=== PATIENT | male | born 1985 | race Caucasian/White ===

== ENCOUNTER 2017-10-06 19:43 | Observation (INO) | payer BC, SELFPAY ==
[2017-10-06] MEDS ORDERED: Lactated Ringer's 1,000 ML IV SCH (20:15)
--- NOTE | 2017-10-06 20:35 | ED PDOC ---
Arrival/HPI - General Chief Complaint: Abdominal Pain Time Seen by Provider: 10/06/17 20:13 Historian: Patient - History of Present Illness Narrative History of Present Illness (Text): 10/06/17 20:32 A 31 year old male, with no significant past medical history, presents to the emergency department complaining of vomiting and diarrhea that began yesterday and abdominal pain that began today. +cough no fever. Time/Duration: Other (Yesterday) Symptom Onset: Sudden Symptom Course: Unchanged Activities at Onset: Rest, Light Context: Home Past Medical History - Provider Review Nursing Documentation Reviewed: Yes - Infectious Disease Hx of Infectious Diseases: None - Psychiatric Hx Substance Use: No Family/Social History - Physician Review Nursing Documentation Reviewed: Yes Family/Social History: No Known Family HX (Non- contributory) Smoking Status: Never Smoked Hx Alcohol Use: No Hx Substance Use: No Allergies/Home Meds Allergies/Adverse Reactions: Allergies pistachio nut Allergy (Verified 10/07/17 03:07) VOMITING Review of Systems - Physician Review All systems were reviewed & negative as marked: Yes - Review of Systems Constitutional: absent: Fevers, Night Sweats Respiratory: Cough. absent: SOB Cardiovascular: absent: Chest Pain Gastrointestinal: Abdominal Pain, Diarrhea, Vomiting Neurological: absent: Headache Physical Exam Vital Signs Reviewed: Yes Vital Signs Temp Pulse Resp BP Pulse Ox 10/06/17 23:49 99.2 F 92 H 18 123/78 99 10/06/17 23:00 88 18 124/76 100 10/06/17 21:43 90 18 135/85 99 10/06/17 19:43 101.2 F H 95 H 18 142/69 99 Appearance: Positive for: Well-Appearing, Non-Toxic, Comfortable Pain Distress: None Mental Status: Positive for: Alert and Oriented X 3 - Systems Exam Head: Present: Atraumatic, Normocephalic Pupils: Present: PERRL Extroacular Muscles: Present: EOMI Conjunctiva: Present: Normal Mouth: Present: Moist Mucous Membranes Neck: Present: Normal Range of Motion Respiratory/Chest: Present: Clear to Auscultation, Good Air Exchange. No: Respiratory Distress, Accessory Muscle Use Cardiovascular: Present: Regular Rate and Rhythm, Normal S1, S2. No: Murmurs Abdomen: Present: Tenderness (Periumbilical tenderness. ) Back: Present: Normal Inspection Upper Extremity: Present: Normal Inspection. No: Cyanosis, Edema Lower Extremity: Present: Normal Inspection. No: Edema Neurological: Present: GCS=15, CN II-XII Intact, Speech Normal Skin: Present: Warm, Dry, Normal Color. No: Rashes Psychiatric: Present: Alert, Oriented x 3, Normal Insight, Normal Concentration Medical Decision Making ED Course and Treatment: 10/06/17 20:38 Impression: A 31 year old male presents to the emergency department with complaints of periumbilical pain that began today, vomiting and diarrhea that began yesterday. Plan: -- Abdomen/Pelvis CT -- Chest X-ray -- Labs -- Urinalysis -- Toradol and Lactated Ringer's -- Reassess and disposition Progress Notes: CT Abdomen and Pelvis With Intravenous Contrast FINDINGS: LOWER THORAX: No infiltrate seen in the lung bases. ABDOMEN: LIVER: Fatty infiltration of the liver. GALLBLADDER AND BILE DUCTS: No CT evidence of acute cholecystitis. No evidence of significant biliary ductal dilatation. PANCREAS: No CT evidence of acute pancreatitis. SPLEEN: No acute abnormality of the spleen identified. ADRENALS: No acute abnormality of the adrenal glands identified. KIDNEYS AND URETERS: No acute abnormality of the kidneys identified. No evidence of significant hydrouereteronephrosis. STOMACH AND BOWEL: Findings suspicious for a small bowel obstruction. There are multiple fluid-filled and mildly dilated small bowel loops seen, mostly mid small bowel loops, and there are multiple decompressed distal small bowel loops visualized. Transition point is probably seen, within a small bowel loop in the abdomen centrally, images 37-59 of series 601, where there is a change in caliber of the small bowel, followed by multiple normal caliber to mildly decompressed distal small bowel loops. No definite mass is identified at the transition point. There is no evidence of focal enteritis of the transition point. An adhesive small bowel obstruction could have this appearance. Scattered colonic diverticulosis, without evidence of diverticulitis. Otherwise , no significant abnormality of the bowel is identified. APPENDIX: Appendix is seen, and is within normal limits in appearance. PELVIS: BLADDER: No acute abnormality of the bladder identified. REPRODUCTIVE: No acute abnormality of the reproductive organs is seen. ABDOMEN and PELVIS: INTRAPERITONEAL SPACE: No evidence of free intraperitoneal air or fluid. BONES/JOINTS: No acute fractures or other acute bony abnormality noted. SOFT TISSUES: No acute abnormality of the visualized soft tissues is seen. VASCULATURE: No evidence of abdominal aortic aneurysm. No evidence of periaortic hemorrhage. LYMPH NODES: Multiple small lymph nodes seen in the small bowel mesentery, none appearing pathologically enlarged. This is a nonspecific finding. No evidence of diffuse pathologic lymphadenopathy. IMPRESSION: - Findings highly suspicious for a small bowel obstruction. Please see above for a full description. - See above for remaining findings. Dictated and Authenticated by: Orly Naik MD 10/06/2017 10:41 PM Eastern Time ([place] & [place]) - Lab Interpretations Microbiology Results: Microbiology Results 10/06/17 22:00 Urine Urine Culture - Final No Growth (<1,000 CFU/ML) Lab Results: 10/06/17 20:25 10/06/17 20:25 Lab Results 10/06/17 21:40: Urine Color Yellow, Urine Appearance Clear, Urine pH 6.0, Ur Specific [place] 1.025, Urine Protein 30 H, Urine Glucose (UA) Negative, Urine Ketones Negative, Urine Blood Trace-intact H, Urine Nitrate Negative, Urine Bilirubin Negative, Urine Urobilinogen 4.0 H, Ur Leukocyte Esterase Negative, Urine RBC 2 - 5, Urine WBC 0 - 2, Ur Epithelial Cells None, Amorphous Sediment Few, Urine Bacteria Many, Urine Other Uyeast 10/06/17 20:25: Phosphorus 3.2, Magnesium 1.8 10/06/17 20:25: Influenza Typ A,B (EIA) Negative for flu a/b 10/06/17 20:25: Sodium 139, Potassium 3.4 L, Chloride 100, Carbon Dioxide 28, Anion Gap 15, BUN 14, Creatinine 0.9, Est GFR ( Amer) > 60, Est GFR (Non- Af Amer) > 60, Random Glucose 111 H, Calcium 9.1, Total Bilirubin 0.5, AST 30, ALT 59 H, Alkaline Phosphatase 79, Total Protein 7.8, Albumin 4.3, Globulin 3.5 , Albumin/Globulin Ratio 1.2 10/06/17 20:25: WBC 10.9, RBC 4.98, Hgb 14.2, Hct 43.5, MCV 87.3, MCH 28.5, MCHC 32.6, RDW 14.3, Plt Count 254, MPV 9.9, Gran % 77.3 H, Lymph % (Auto) 11.4 L, [place] % (Auto) 10.9 H, Eos % (Auto) 0.3 L, Baso % (Auto) 0.1, Gran # 8.39 H, Lymph # 1.2, [place] # 1.2 H, Eos # 0.0, Baso # 0.01 I have reviewed the lab results: Yes - RAD Interpretation Radiology Orders: 10/06/17 20:15 CHEST PORTABLE [RAD] Stat 10/06/17 20:24 ABD & PELVIS IV CONTRAST ONLY [CT] Stat 10/06/17 22:48 HEAD W/O CONTRAST [CT] Stat - Medication Orders Current Medication Orders: Discontinued Medications Acetaminophen (Tylenol 650 Mg Supp) 650 mg RC STAT STA Stop: 10/07/17 00:57 Last Admin: 10/07/17 01:16 Dose: 650 mg MAR Pain/Vitals Document 10/07/17 01:16 IMT (Rec: 10/07/17 01:16 IMT [id number]) Vitals Temperature (97.6 F-99.6 F) 101.2 F Temperature Source Oral Re-Assess: MAR Pain/Vitals Document 10/07/17 02:16 IMT (Rec: 10/07/17 04:29 IMT [id number]) Vitals Temperature (97.6 F-99.6 F) 98.2 F Temperature Source Oral Acetaminophen (Tylenol 650 Mg Supp) 650 mg RC Q6H PRN PRN Reason: Fever >100.4 F Benzonatate (Tessalon Perles) 100 mg PO TID PRN PRN Reason: Cough and congestion Lactated Ringer's (Lactated Ringer's) 1,000 mls @ 999 mls/hr IV .Q1H1M [facility] Last Admin: 10/06/17 20:38 Dose: 999 mls/hr eMAR Start Stop Document 10/06/17 20:38 JOL (Rec: 10/06/17 20:38 JOL [id number]) Intravenous Solution Start Date 10/06/17 Start Time 20:38 End Date 10/06/17 End time 21:39 Total Infusion Time 61 Sodium Chloride (Sodium Chloride 0.9%) 1,000 mls @ 100 mls/hr IV .Q10H [facility] Last Admin: 10/07/17 00:00 Dose: 100 mls/hr eMAR Start Stop Document 10/07/17 00:00 JOL (Rec: 10/07/17 00:00 JOL [id number]) Intravenous Solution Start Date 10/07/17 Start Time 00:00 Piperacillin Sod/Tazobactam Sod (Zosyn 3.375 In Ns 100ml) 100 mls @ 200 mls/hr IVPB STAT STA PRN Reason: Protocol Stop: 10/06/17 23:19 Last Admin: 10/06/17 23:15 Dose: 200 mls/hr eMAR Start Stop Document 10/06/17 23:15 JOL (Rec: 10/06/17 23:37 JOL [id number]) Intravenous Solution Start Date 10/06/17 Start Time 23:15 End Date 10/06/17 End time 23:45 Total Infusion Time 30 Potassium Chloride (Potassium Chloride 20 Meq/100 Ml) 20 meq in 100 mls @ 50 mls/hr IVPB Q2H [facility]ELBY Stop: 10/07/17 03:29 Last Admin: 10/07/17 00:00 Dose: 50 mls/hr eMAR Start Stop Document 10/07/17 00:00 JOL (Rec: 10/07/17 00:00 JOL [id number]) Intravenous Solution Start Date 10/07/17 Start Time 00:00 End Date 10/07/17 End time 02:00 Total Infusion Time 120 Azithromycin (Zithromax 500mg In Ns) 500 mg in 250 mls @ 167 mls/hr IVPB DAILY [facility] PRN Reason: Protocol Last Admin: 10/07/17 11:22 Dose: 167 mls/hr eMAR Start Stop Document 10/07/17 11:22 MCV (Rec: 10/07/17 11:22 [facility] [id number] Intravenous Solution Start Date 10/07/17 Start Time 11:00 Potassium Chloride 40 meq/ (Sodium Chloride) 1,020 mls @ 150 mls/hr IV .Q6H48M ONE Stop: 10/07/17 06:52 Last Admin: 10/07/17 03:00 Dose: 150 mls/hr eMAR Start Stop Document 10/07/17 03:00 IMT (Rec: 10/07/17 03:00 IMT [id number]) Intravenous Solution Start Date 10/07/17 Start Time 03:00 Sodium Chloride (Sodium Chloride 0.9%) 1,000 mls @ 150 mls/hr IV .Q6H40M [facility] Ketorolac Tromethamine (Toradol) 15 mg IVP STAT STA Stop: 10/06/17 20:16 Last Admin: 10/06/17 20:38 Dose: 15 mg MAR Pain Assessment Document 10/06/17 20:38 JOL (Rec: 10/06/17 20:38 [id number] Pain Reassessment Is this a pain reassessment? No Sleep Is patient sleeping during reassessment? No Presence of Pain Presence of Pain Yes Pain Scale Used Pain Scale Used Numeric Location Pain Location Body Site Abdomen Description Intensity of Pain at present 10 Acceptable Level of Pain 2 IVP Administration Document 10/06/17 20:38 JOL (Rec: 10/06/17 20:38 [id number]) Charges for Administration # of IVP Administrations 1 Re-Assess: [facility] Pain Assessment Document 10/06/17 21:38 JOL (Rec: 10/06/17 22:09 [id number] Pain Reassessment Is this a pain reassessment? Yes Sleep Is patient sleeping during reassessment? No Presence of Pain Presence of Pain No Morphine Sulfate (Morphine) 4 mg IVP Q4H PRN PRN Reason: Pain, severe (8-10) Ondansetron HCl (Zofran Inj) 4 mg IVP Q6H PRN PRN Reason: Nausea/Vomiting Oseltamivir Phosphate (Tamiflu Cap) 75 mg PO BID [facility] PRN Reason: Protocol Stop: 10/11/17 23:35 Last Admin: 10/07/17 11:00 Dose: 75 mg Pantoprazole Sodium (Protonix Inj) 40 mg IVP DAILY [facility] Last Admin: 10/07/17 11:00 Dose: 40 mg IVP Administration Document 10/07/17 11:00 MCV (Rec: 10/07/17 11:23 [facility]CV [facility] [id number][place] Charges for Administration # of IVP Administrations 1 - Scribe Statement The provider has reviewed the documentation as recorded by the José Miguelibgagandeep Vargas Provider Scribe Attestation: All medical record entries made by the Scribe were at my direction and personally dictated by me. I have reviewed the chart and agree that the record accurately reflects my personal performance of the history, physical exam, medical decision making, and the department course for this patient. I have also personally directed, reviewed, and agree with the discharge instructions and disposition. Disposition/Present on Arrival - Present on Arrival Any Indicators Present on Arrival: No History of DVT/PE: No History of Uncontrolled Diabetes: No Urinary Catheter: No History of Decub. Ulcer: No History Surgical Site Infection Following: None - Disposition Have Diagnosis and Disposition been Completed?: Yes Diagnosis: SBO (small bowel obstruction) Disposition: HOSPITALIZED Disposition Time: 22:49 Condition: STABLE
[2017-10-06 20:41] LABS: BASO # 0.01 K/mm3 (0.0-2.0); BASO % 0.1 % (0.0-3.0); EOS % 0.3 % (1.5-5.0); GRAN # 8.39 (1.4-6.5); GRAN % 77.3 % (50.0-68.0); HEMOGLOBIN 14.2 g/dL (14.0-18.0); LYMPH # 1.2 (1.2-3.4); LYMPH % 11.4 % (22.0-35.0); MEAN CELL VOLUME 87.3 fl (80.0-105.0); MEAN CORPUSCULAR HEMOGLOBIN 28.5 pg (25.0-35.0); MEAN CORPUSCULAR HGB CONC 32.6 g/dl (31.0-37.0); MEAN PLATELET VOLUME 9.9 fl (7.0-11.0); MONO # 1.2 (0.1-0.6); MONO % 10.9 % (1.0-6.0); RBC 4.98 10^6/uL (3.5-6.1); RED CELL DISTRIBUTION WIDTH 14.3 % (11.5-14.5); WHITE BLOOD COUNT 10.9 10^3/ul (4.5-11.0)
[2017-10-06 20:48] LABS: ALB/GLOB RATIO 1.2 (1.1-1.8); ALBUMIN 4.3 g/dL (3.0-4.8); ALT/SGPT 59 U/L (7-56); AST/SGOT 30 U/L (17-59); BLOOD UREA NITROGEN 14 mg/dL (7-21); CALCIUM 9.1 mg/dL (8.4-10.5); GFR AFRICAN-AMERICAN > 60; GFR NON-AFRICAN AMERICAN > 60
[2017-10-06 21:53] LABS: URINE BILIRUBIN NEGATIVE (NEGATIVE); URINE BLOOD TRACE-INTACT (NEGATIVE); URINE GLUCOSE (UA) NEGATIVE (NEGATIVE); URINE LEUKOCYTE ESTERASE NEGATIVE Leu/uL (NEGATIVE); URINE NITRATE NEGATIVE (NEGATIVE); URINE PROTEIN 30 mg/dL (<30 mg/dL)
[2017-10-06 21:54] LABS: URINE APPEARANCE CLEAR (CLEAR); URINE COLOR YELLOW (YELLOW)
[2017-10-06 21:59] LABS: URINE AMORPHOUS SEDIMENT FEW; URINE BACTERIA MANY (NEG); URINE WBC 0 - 2 /hpf (0-6)
--- NOTE | 2017-10-06 22:41 | CT ---
EXAM: CT Abdomen and Pelvis With Intravenous Contrast EXAM DATE/TIME: 10/06/2017 8:24 PM CLINICAL HISTORY: 31 years old, male; Pain; Abdominal pain TECHNIQUE: Axial computed tomography images of the abdomen and pelvis with intravenous contrast. All CT scans at this facility use one or more dose reduction techniques, viz.: automated exposure control; ma/kV adjustment per patient size (including targeted exams where dose is matched to indication; i.e. head); or iterative reconstruction technique. Coronal and sagittal reformatted images were created and reviewed. CONTRAST: 136 mL of OMNI 350 administered intravenously. COMPARISON: No relevant prior studies available. FINDINGS: LOWER THORAX: No infiltrate seen in the lung bases. ABDOMEN: LIVER: Fatty infiltration of the liver. GALLBLADDER AND BILE DUCTS: No CT evidence of acute cholecystitis. No evidence of significant biliary ductal dilatation. PANCREAS: No CT evidence of acute pancreatitis. SPLEEN: No acute abnormality of the spleen identified. ADRENALS: No acute abnormality of the adrenal glands identified. KIDNEYS AND URETERS: No acute abnormality of the kidneys identified. No evidence of significant hydrouereteronephrosis. STOMACH AND BOWEL: Findings suspicious for a small bowel obstruction. There are multiple fluid-filled and mildly dilated small bowel loops seen, mostly mid small bowel loops, and there are multiple decompressed distal small bowel loops visualized. Transition point is probably seen, within a small bowel loop in the abdomen centrally, images 37-59 of series 601, where there is a change in caliber of the small bowel, followed by multiple normal caliber to mildly decompressed distal small bowel loops. No definite mass is identified at the transition point. There is no evidence of focal enteritis of the transition point. An adhesive small bowel obstruction could have this appearance. Scattered colonic diverticulosis, without evidence of diverticulitis. Otherwise, no significant abnormality of the bowel is identified. APPENDIX: Appendix is seen, and is within normal limits in appearance. PELVIS: BLADDER: No acute abnormality of the bladder identified. REPRODUCTIVE: No acute abnormality of the reproductive organs is seen. ABDOMEN and PELVIS: INTRAPERITONEAL SPACE: No evidence of free intraperitoneal air or fluid. BONES/JOINTS: No acute fractures or other acute bony abnormality noted. SOFT TISSUES: No acute abnormality of the visualized soft tissues is seen. VASCULATURE: No evidence of abdominal aortic aneurysm. No evidence of periaortic hemorrhage. LYMPH NODES: Multiple small lymph nodes seen in the small bowel mesentery, none appearing pathologically enlarged. This is a nonspecific finding. No evidence of diffuse pathologic lymphadenopathy. IMPRESSION: - Findings highly suspicious for a small bowel obstruction. Please see above for a full description. - See above for remaining findings.
[2017-10-06] MEDS ORDERED: Piperacillin/Tazobact 3.375 gm 100 ML IVPB STA (22:50)
[2017-10-06] MEDS ORDERED: Sodium Chloride 0.9% 1,000 ML IV SCH (23:00)
[2017-10-06] MEDS ORDERED: Morphine 4 mg/ml ISec IVP PRN (23:29)
--- NOTE | 2017-10-06 23:44 | CP.PCM.HP ---
History of Present Illness - History of Present Illness History of Present Illness: CC: Abd pain with nausea and vomiting; Cough 31 M with no significant PMH presents to the emergency department complaining of worsening abd pain. Pt states that he he had an episode of NBNB n/v and few episodes of diarrhea yesterday and today. His abd pain became significantly worse today and he decided to come to the hospital. Pain is epigastric, non radiating and 10/10 in severity. Pt also complaining of cough with yellow/green phlegm, fevers and chills which all started yesterday. When he coughs he gets a shock like sensation in his anterior chest. Denies any chest pain, or shortness of breath. 12 Point ROS performed and negative other than stated above. PMH: Denies PSH: denies ALL; Pistacious FH: DM runs in family SH: denies drinking, smoking, or drugs t. Present on Admission - Present on Admission Any Indicators Present on Admission: Yes Review of Systems - Review of Systems All systems: reviewed and no additional remarkable complaints except Past Patient History - Infectious Disease Hx of Infectious Diseases: None - Past Social History Smoking Status: Never Smoked - PSYCHIATRIC Hx Substance Use: No Meds Allergies/Adverse Reactions: Allergies Allergy/AdvReac Type Severity Reaction Status Date / Time No Known Allergies Allergy Verified 10/06/17 20:11 Physical Exam - Constitutional Appears: No Acute Distress - Head Exam Head Exam: NORMAL INSPECTION - Eye Exam Eye Exam: EOMI, PERRL Pupil Exam: NORMAL ACCOMODATION - ENT Exam ENT Exam: Mucous Membranes Moist - Respiratory Exam Respiratory Exam: Clear to Auscultation Bilateral. absent: Rales, Wheezes - Cardiovascular Exam Cardiovascular Exam: RRR, +S1, +S2 - GI/Abdominal Exam GI & Abdominal Exam: Distended, Normal Bowel Sounds, Tenderness. absent: Firm, Guarding, Hernia Additional comments: Mild distention and tenderness - Extremities Exam Extremities exam: Negative for: calf tenderness, pedal edema - Neurological Exam Neurological exam: Alert, CN II-XII Intact, Reflexes Normal - Psychiatric Exam Psychiatric exam: Normal Affect, Normal Mood - Skin Skin Exam: Dry, Intact, Warm Results - Vital Signs Recent Vital Signs: Last Vital Signs Temp 101.2 F H 10/06/17 19:43 Pulse 88 10/06/17 23:00 Resp 18 10/06/17 23:00 BP 124/76 10/06/17 23:00 Pulse Ox 100 10/06/17 23:00 - Labs Result Diagrams: 10/06/17 20:25 10/06/17 20:25 Labs: Laboratory Results - last 24 hr 10/06/17 10/06/17 10/06/17 20:25 20:25 20:25 WBC 10.9 RBC 4.98 Hgb 14.2 Hct 43.5 MCV 87.3 MCH 28.5 MCHC 32.6 RDW 14.3 Plt Count 254 MPV 9.9 Gran % 77.3 H Lymph % (Auto) 11.4 L [place] % (Auto) 10.9 H Eos % (Auto) 0.3 L Baso % (Auto) 0.1 Gran # 8.39 H Lymph # 1.2 [place] # 1.2 H Eos # 0.0 Baso # 0.01 Sodium 139 Potassium 3.4 L Chloride 100 Carbon Dioxide 28 Anion Gap 15 BUN 14 Creatinine 0.9 Est GFR ( Amer) > 60 Est GFR (Non-Af Amer) > 60 Random Glucose 111 H Calcium 9.1 Total Bilirubin 0.5 AST 30 ALT 59 H Alkaline Phosphatase 79 Total Protein 7.8 Albumin 4.3 Globulin 3.5 Albumin/Globulin Ratio 1.2 Urine Color Urine Appearance Urine pH Ur Specific [place] Urine Protein Urine Glucose (UA) Urine Ketones Urine Blood Urine Nitrate Urine Bilirubin Urine Urobilinogen Ur Leukocyte Esterase Urine RBC Urine WBC Ur Epithelial Cells Amorphous Sediment Urine Bacteria Urine Other Influenza Typ A,B (EIA) Negative for flu a/b 10/06/17 21:40 WBC RBC Hgb Hct MCV MCH MCHC RDW Plt Count MPV Gran % Lymph % (Auto) [place] % (Auto) Eos % (Auto) Baso % (Auto) Gran # Lymph # [place] # Eos # Baso # Sodium Potassium Chloride Carbon Dioxide Anion Gap BUN Creatinine Est GFR ( Amer) Est GFR (Non-Af Amer) Random Glucose Calcium Total Bilirubin AST ALT Alkaline Phosphatase Total Protein Albumin Globulin Albumin/Globulin Ratio Urine Color Yellow Urine Appearance Clear Urine pH 6.0 Ur Specific [place] 1.025 Urine Protein 30 H Urine Glucose (UA) Negative Urine Ketones Negative Urine Blood Trace-intact H Urine Nitrate Negative Urine Bilirubin Negative Urine Urobilinogen 4.0 H Ur Leukocyte Esterase Negative Urine RBC 2 - 5 Urine WBC 0 - 2 Ur Epithelial Cells None Amorphous Sediment Few Urine Bacteria Many Urine Other Uyeast Influenza Typ A,B (EIA) Assessment & Plan - Assessment and Plan (Free Text) Assessment: 31 M with no significant PMH presents to the emergency department complaining of worsening abd pain found to have a SBO, and cough accompanied by chills. 1. Abd pain 2/2 Likely SBO - NPO - Pain control - Zofran PRN - Surgery consulted for recs - CT scan shows SBO - NS @ 100 - Zosyn x 1 in the ED - Cont to monitor for changes 2. Cough possibly 2/2 Bronchitis vs pneu vs Influ - SIRS +2/4 with fever of 101.2F and HR of 95 - no leukocytosis - Symptoms onset <48hr therefore started on Tamiflu - Started on Azithromycin - CXR- read by me - no active dx - Cont to monitor 3. Hypokalemia - K of 3.4 - Kcl 20meq x 2 Replete as needed 4. GI/DVT ppx - Protonix and SCDx Case and plan was reviewed and discussed in detail with Dr Wright.
[2017-10-06 23:50] LABS: MAGNESIUM 1.8 mg/dL (1.7-2.2)
--- NOTE | 2017-10-07 00:09 | CT ---
EXAM: CT Head Without Intravenous Contrast EXAM DATE/TIME: 10/06/2017 10:48 PM CLINICAL HISTORY: 31 years old, male; Signs and symptoms; Fever TECHNIQUE: Axial computed tomography images of the head/brain without intravenous contrast. All CT scans at this facility use one or more dose reduction techniques, viz.: automated exposure control; ma/kV adjustment per patient size (including targeted exams where dose is matched to indication; i.e. head); or iterative reconstruction technique. Coronal and sagittal reformatted images were created and reviewed. COMPARISON: No relevant prior studies available. FINDINGS: BRAIN: No significant acute abnormality identified. No acute hemorrhage seen within the brain. No acute extra-axial fluid collections visualized. No evidence of significant mass effect within the brain.Normal navarro-white matter differentiation. VENTRICLES: No evidence of significant hydrocephalus. BONES/JOINTS: No acute fractures or other acute bony abnormality noted. SOFT TISSUES: No acute abnormality of the visualized soft tissues is seen. SINUSES: Visualized paranasal sinuses appear clear. MASTOID AIR CELLS: Mastoid air cells appear clear. IMPRESSION: - No acute findings seen within the brain. - See above for remaining findings.
--- NOTE | 2017-10-07 00:10 | CP.PCM.CON ---
History of Present Illness - History of Present Illness History of Present Illness: Surgery Consult Note. Dr. Blackmon 31yo M with no significant PMHx here for evaluation of abdominal pain. Patient states that 2 days ago, he had some potatoes and eggs at 4:30PM, he states that he felt a bit nauseous prior to sleeping that night. He reports waking up the following morning and vomiting the food he had eaten. He states that he had nausea and emesis thoughout yesterday, non-bilious, non-bloody. Today, he woke up with nausea and had 3-4 episodes of diarrhea and periumbilical abdominal pain. Denies any subjective fevers at home but does report chills. He has been drinking liquids all day today and his last meal was soup at 4PM. Does report some nausea today, no emesis. Diarrhea described as liquid stool, no foul odor reported. No other sick contacts. No CP/SOB. No Headaches. CT Abd/Pelvis performed in ED concerning for SBO. PMHx: denies PSHx: denies Social Hx: . Denies Tobacco, Denies ETOH, Denies illicit drugs NKDA Review of Systems - Review of Systems All systems: reviewed and no additional remarkable complaints except - Constitutional Constitutional: Anorexia, Chills - Cardiovascular Cardiovascular: absent: Chest Pain, Dyspnea - Respiratory Respiratory: Cough - Gastrointestinal Gastrointestinal: Abdominal Pain, Belching, Diarrhea, Nausea, Vomiting. absent : Bloating, Hematemesis, Hematochezia - Genitourinary Genitourinary: absent: Dysuria Past Patient History - Infectious Disease Hx of Infectious Diseases: None - Past Social History Smoking Status: Never Smoked - PSYCHIATRIC Hx Substance Use: No Meds Allergies/Adverse Reactions: Allergies Allergy/AdvReac Type Severity Reaction Status Date / Time No Known Allergies Allergy Verified 10/06/17 20:11 - Medications Medications: Current Medications Sodium Chloride (Sodium Chloride 0.9%) 1,000 mls @ 100 mls/hr IV .Q10H KELBY Last Admin: 10/07/17 00:00 Dose: 100 mls/hr Potassium Chloride (Potassium Chloride 20 Meq/100 Ml) 20 meq in 100 mls @ 50 mls/hr IVPB Q2H KELBY Stop: 10/07/17 03:29 Last Admin: 10/07/17 00:00 Dose: 50 mls/hr Azithromycin (Zithromax 500mg In Ns) 500 mg in 250 mls @ 167 mls/hr IVPB DAILY KELBY PRN Reason: Protocol Morphine Sulfate (Morphine) 4 mg IVP Q4H PRN PRN Reason: Pain, severe (8-10) Oseltamivir Phosphate (Tamiflu Cap) 75 mg PO BID KELBY PRN Reason: Protocol Stop: 10/11/17 23:35 Pantoprazole Sodium (Protonix Inj) 40 mg IVP DAILY [facility] Last Admin: 10/07/17 00:00 Dose: 40 mg Physical Exam - Constitutional Appears: Well, Non-toxic, No Acute Distress - Head Exam Head Exam: ATRAUMATIC, NORMAL INSPECTION, NORMOCEPHALIC - Eye Exam Eye Exam: EOMI, Normal appearance - ENT Exam ENT Exam: Mucous Membranes Moist - Respiratory Exam Respiratory Exam: NORMAL BREATHING PATTERN. absent: Accessory Muscle Use, Respiratory Distress - Cardiovascular Exam Cardiovascular Exam: absent: JVD - GI/Abdominal Exam GI & Abdominal Exam: Soft. absent: Firm, Guarding, Rebound, Rigid Additional comments: mildly distended abdomen. No tenderness to palpation. No rebound, no guarding - Extremities Exam Extremities exam: Positive for: normal inspection. Negative for: calf tenderness - Back Exam Back exam: NORMAL INSPECTION - Neurological Exam Neurological exam: Alert, Oriented x3 - Psychiatric Exam Psychiatric exam: Normal Affect, Normal Mood - Skin Skin Exam: Dry, Intact, Normal Color, Warm Results - Vital Signs Recent Vital Signs: Last Vital Signs Temp 99.2 F 10/06/17 23:49 Pulse 92 H 10/06/17 23:49 Resp 18 10/06/17 23:49 BP 123/78 10/06/17 23:49 Pulse Ox 99 10/06/17 23:49 - Labs Result Diagrams: 10/06/17 20:25 10/06/17 20:25 Assessment & Plan - Assessment and Plan (Free Text) Assessment: 31yo M with SBO - Patient refusing NGT decompression for now. Will consider NGT if patient continues with nausea/emesis - Aggressive IVF - antiemetics - pain management - electrolyte replacement. f/u AM labs - NPO bowel rest - Serial abd exams Further recs as per Dr. Neymar Torrez PGY1 surgery pager: [phone]
[2017-10-07] MEDS: Azithromycin 500MG/NS 250ml 500 MG/250 ML BAG IVPB SCH ×2 (03:00→11:22)
[2017-10-07 03:20] VITALS: RESP 20
[2017-10-07] MEDS ORDERED: Sodium Chloride 0.9% 1,000 ML IV SCH (06:45)
[2017-10-07 07:13] LABS: EOS # 0.1 (0.0-0.7); EOS % 0.5 % (1.5-5.0); GRAN # 7.24 (1.4-6.5); GRAN % 76.7 % (50.0-68.0); HEMOGLOBIN 12.4 g/dL (14.0-18.0); LYMPH # 1.4 (1.2-3.4); LYMPH % 14.3 % (22.0-35.0); MEAN CELL VOLUME 87.6 fl (80.0-105.0); MEAN CORPUSCULAR HEMOGLOBIN 27.9 pg (25.0-35.0); MEAN CORPUSCULAR HGB CONC 31.9 g/dl (31.0-37.0); MEAN PLATELET VOLUME 9.7 fl (7.0-11.0); MONO # 0.8 (0.1-0.6); MONO % 8.5 % (1.0-6.0); RBC 4.44 10^6/uL (3.5-6.1); RED CELL DISTRIBUTION WIDTH 14.5 % (11.5-14.5); WHITE BLOOD COUNT 9.4 10^3/ul (4.5-11.0)
[2017-10-07 07:29] LABS: ALB/GLOB RATIO 1.1 (1.1-1.8); ALBUMIN 3.3 g/dL (3.0-4.8); ALT/SGPT 45 U/L (7-56); AST/SGOT 22 U/L (17-59); BLOOD UREA NITROGEN 13 mg/dL (7-21); CALCIUM 8.1 mg/dL (8.4-10.5); GFR AFRICAN-AMERICAN > 60; GFR NON-AFRICAN AMERICAN > 60
[2017-10-07 07:33] VITALS: BP 95/49; PULSE 98; TEMP 99; O2SAT 98
--- NOTE | 2017-10-07 08:44 | RAD ---
HISTORY: Fever. Portable study 20:36 COMPARISON: No prior. FINDINGS: LUNGS: No active pulmonary disease. PLEURA: No significant pleural effusion identified, no pneumothorax apparent. CARDIOVASCULAR: Normal. OSSEOUS STRUCTURES: No significant abnormalities. VISUALIZED UPPER ABDOMEN: Normal. OTHER FINDINGS: None. IMPRESSION: No active disease.
--- NOTE | 2017-10-07 11:00 | CON ---
DATE: HISTORY OF PRESENT ILLNESS: Yuniel Covarrubias is seen on the floor. He had severe abdominal pain and diarrhea that at this moment has resolved. CAT scan is suspicious for small bowel obstruction in a person who never operated on. However, there is no twisting in the bowel that I can see. There is a smooth transition from a dilated loop of bowel to a decompress loop of bowel that seems benign. Clinically, he is passing gas at this movement. PHYSICAL EXAMINATION: His abdomen is soft and nontender. No guarding or rebound. IMPRESSION AND PLAN: As far as the fact that his white count was elevated and he had a temperature, I think this is a gastroenteritis and I have no surgical intension. My plan would be feed him and eventually send him home. Luis Blackmon MD
--- NOTE | 2017-10-07 14:39 | CP.PCM.DIS ---
<Yuniel Lorenzo - Last Filed: 10/07/17 14:29> Provider - Provider Date of Admission: 10/06/17 22:49 Attending physician: Jesus Barbour MD Primary care physician: Jesus Barbour MD Time Spent in preparation of Discharge (in minutes): 40 Diagnosis - Discharge Diagnosis (1) Gastroenteritis Status: Acute Hospital Course - Lab Results Lab Results: Most Recent Lab Values WBC 9.4 10^3/ul (4.5-11.0) 10/07/17 06:30 RBC 4.44 10^6/uL (3.5-6.1) 10/07/17 06:30 Hgb 12.4 g/dL (14.0-18.0) L 10/07/17 06:30 Hct 38.9 % (42.0-52.0) L 10/07/17 06:30 MCV 87.6 fl (80.0-105.0) 10/07/17 06:30 MCH 27.9 pg (25.0-35.0) 10/07/17 06:30 MCHC 31.9 g/dl (31.0-37.0) 10/07/17 06:30 RDW 14.5 % (11.5-14.5) 10/07/17 06:30 Plt Count 219 10^3/uL (120.0-450.0) 10/07/17 06:30 MPV 9.7 fl (7.0-11.0) 10/07/17 06:30 Gran % 76.7 % (50.0-68.0) H 10/07/17 06:30 Lymph % (Auto) 14.3 % (22.0-35.0) L 10/07/17 06:30 [place] % (Auto) 8.5 % (1.0-6.0) H 10/07/17 06:30 Eos % (Auto) 0.5 % (1.5-5.0) L 10/07/17 06:30 Baso % (Auto) 0.0 % (0.0-3.0) 10/07/17 06:30 Gran # 7.24 (1.4-6.5) H 10/07/17 06:30 Lymph # 1.4 (1.2-3.4) 10/07/17 06:30 [place] # 0.8 (0.1-0.6) H 10/07/17 06:30 Eos # 0.1 (0.0-0.7) 10/07/17 06:30 Baso # 0.00 K/mm3 (0.0-2.0) 10/07/17 06:30 Sodium 139 mmol/L (132-148) 10/07/17 06:30 Potassium 3.8 mmol/L (3.6-5.0) 10/07/17 06:30 Chloride 106 mmol/L (98-107) 10/07/17 06:30 Carbon Dioxide 23 mmol/L (21-33) 10/07/17 06:30 Anion Gap 13 (10-20) 10/07/17 06:30 BUN 13 mg/dL (7-21) 10/07/17 06:30 Creatinine 0.9 mg/dl (0.8-1.5) 10/07/17 06:30 Est GFR ( Amer) > 60 10/07/17 06:30 Est GFR (Non-Af Amer) > 60 10/07/17 06:30 Random Glucose 104 mg/dL (70-110) 10/07/17 06:30 Lactic Acid 1.9 mmol/L (0.7-2.1) 10/07/17 01:38 Calcium 8.1 mg/dL (8.4-10.5) L 10/07/17 06:30 Phosphorus 3.2 mg/dL (2.5-4.5) 10/06/17 20:25 Magnesium 1.8 mg/dL (1.7-2.2) 10/06/17 20:25 Total Bilirubin 0.4 mg/dL (0.2-1.3) 10/07/17 06:30 AST 22 U/L (17-59) 10/07/17 06:30 ALT 45 U/L (7-56) 10/07/17 06:30 Alkaline Phosphatase 59 U/L (38-126) 10/07/17 06:30 Total Protein 6.3 g/dL (5.8-8.3) 10/07/17 06:30 Albumin 3.3 g/dL (3.0-4.8) 10/07/17 06:30 Globulin 3.0 gm/dL 10/07/17 06:30 Albumin/Globulin Ratio 1.1 (1.1-1.8) 10/07/17 06:30 Urine Color Yellow (YELLOW) 10/06/17 21:40 Urine Appearance Clear (CLEAR) 10/06/17 21:40 Urine pH 6.0 (4.7-8.0) 10/06/17 21:40 Ur Specific [place] 1.025 (1.005-1.035) 10/06/17 21:40 Urine Protein 30 mg/dL (<30 mg/dL) H 10/06/17 21:40 Urine Glucose (UA) Negative mg/dL (NEGATIVE) 10/06/17 21:40 Urine Ketones Negative mg/dL (NEGATIVE) 10/06/17 21:40 Urine Blood Trace-intact (NEGATIVE) H 10/06/17 21:40 Urine Nitrate Negative (NEGATIVE) 10/06/17 21:40 Urine Bilirubin Negative (NEGATIVE) 10/06/17 21:40 Urine Urobilinogen 4.0 E.U./dL (<1 E.U./dL) H 10/06/17 21:40 Ur Leukocyte Esterase Negative Opal/uL (NEGATIVE) 10/06/17 21:40 Urine RBC 2 - 5 /hpf (0-2) 10/06/17 21:40 Urine WBC 0 - 2 /hpf (0-6) 10/06/17 21:40 Ur Epithelial Cells None /hpf (0-5) 10/06/17 21:40 Amorphous Sediment Few 10/06/17 21:40 Urine Bacteria Many (NEG) 10/06/17 21:40 Urine Other Uyeast 10/06/17 21:40 Influenza Typ A,B (EIA) Negative for flu a/b (NEGATIVE) 10/06/17 20:25 - Hospital Course Hospital Course: Mr. Covarrubias is a 31 yo M with no significant PMH presents to the emergency department complaining of worsening abd pain. Pt states that he he had an episode of NBNB n/v and few episodes of diarrhea x2 days. His abd pain became progressively worsened and he decided to come to the hospital. Pain is epigastric, non radiating and 10/10 in severity. Pt also complaining of cough with yellow/green phlegm, fevers and chills which all started yesterday. The patient denied any changes in diet, new foods, or sick contacts. CT abd was suspicious for SBO and CT head was unremarkable. Patient was offered NG tube but refused. Surgery was consulted. Patient was given Zosyn in Ed, and given Zithromax and tamiflu. Patient was transferred to med-surg floors for management. Patient was given IV fluids and cultures were drawn. Patient had a low grade fever that resolved with tylenol. Rest of vital signs were stable. There was no WBC elevation and no electrolyte abnormalities. Patient was passing gas and stated that he felt better and that his pain had resolved. Patient's diet was advanced and he tolerated. He is being discharged with flagyl , zofran and tesslon perles due to cough. Patient understands all discharge instructions and has no further questions. Medically stable for discharge. - Date & Time of H&P Date of H&P: 10/06/17 Time of H&P: 23:41 Discharge Exam - Head Exam Head Exam: ATRAUMATIC, NORMAL INSPECTION, NORMOCEPHALIC - Eye Exam Eye Exam: EOMI, Normal appearance - ENT Exam ENT Exam: Mucous Membranes Moist - Neck Exam Neck exam: Normal Inspection - Respiratory Exam Respiratory Exam: Clear to PA & Lateral, NORMAL BREATHING PATTERN, UNREMARKABLE. absent: Rales, Rhonchi, Wheezes - Cardiovascular Exam Cardiovascular Exam: RRR, +S1, +S2. absent: JVD - GI/Abdominal Exam GI & Abdominal Exam: Normal Bowel Sounds, Soft. absent: Distended, Tenderness - Extremities Exam Extremities exam: full ROM - Back Exam Back exam: NORMAL INSPECTION - Neurological Exam Neurological exam: Alert, Normal Gait, Oriented x3 - Psychiatric Exam Psychiatric exam: Normal Affect, Normal Mood - Skin Skin Exam: Normal Color, Warm Discharge Plan - Discharge Medications Prescriptions: Benzonatate [Tessalon Perles] 100 mg PO TID PRN #12 sgl PRN Reason: Cough metroNIDAZOLE [Flagyl] 500 mg PO Q8 #30 tab Ondansetron ODT [Zofran ODT] 8 mg PO Q8 PRN #21 odt PRN Reason: Nausea/Vomiting - Follow Up Plan Condition: GOOD Disposition: HOME/ ROUTINE Instructions: Gastroenteritis (DC) Additional Instructions: - please take your Flagyl medication as scheduled/prescribed - please take the Tessalon perles for cough as needed as prescribed - please take the zofran for nausea/vomiting as needed as prescribed - please follow up with your PMD within 2 weeks - if you continue to experience nausea/vomiting, trouble passing stools/gas or worsening of abdominal pain, please return to ER for evaluation Referrals: Jesus Barbour MD [Primary Care Provider] - <Roberto Wright - Last Filed: 10/07/17 17:30> Provider - Provider Date of Admission: 10/06/17 22:49 Attending physician: Jesus Barbour MD Primary care physician: Jesus Barbour MD Hospital Course - Lab Results Lab Results: Most Recent Lab Values WBC 9.4 10^3/ul (4.5-11.0) 10/07/17 06:30 RBC 4.44 10^6/uL (3.5-6.1) 10/07/17 06:30 Hgb 12.4 g/dL (14.0-18.0) L 10/07/17 06:30 Hct 38.9 % (42.0-52.0) L 10/07/17 06:30 MCV 87.6 fl (80.0-105.0) 10/07/17 06:30 MCH 27.9 pg (25.0-35.0) 10/07/17 06:30 MCHC 31.9 g/dl (31.0-37.0) 10/07/17 06:30 RDW 14.5 % (11.5-14.5) 10/07/17 06:30 Plt Count 219 10^3/uL (120.0-450.0) 10/07/17 06:30 MPV 9.7 fl (7.0-11.0) 10/07/17 06:30 Gran % 76.7 % (50.0-68.0) H 10/07/17 06:30 Lymph % (Auto) 14.3 % (22.0-35.0) L 10/07/17 06:30 [place] % (Auto) 8.5 % (1.0-6.0) H 10/07/17 06:30 Eos % (Auto) 0.5 % (1.5-5.0) L 10/07/17 06:30 Baso % (Auto) 0.0 % (0.0-3.0) 10/07/17 06:30 Gran # 7.24 (1.4-6.5) H 10/07/17 06:30 Lymph # 1.4 (1.2-3.4) 10/07/17 06:30 [place] # 0.8 (0.1-0.6) H 10/07/17 06:30 Eos # 0.1 (0.0-0.7) 10/07/17 06:30 Baso # 0.00 K/mm3 (0.0-2.0) 10/07/17 06:30 Sodium 139 mmol/L (132-148) 10/07/17 06:30 Potassium 3.8 mmol/L (3.6-5.0) 10/07/17 06:30 Chloride 106 mmol/L (98-107) 10/07/17 06:30 Carbon Dioxide 23 mmol/L (21-33) 10/07/17 06:30 Anion Gap 13 (10-20) 10/07/17 06:30 BUN 13 mg/dL (7-21) 10/07/17 06:30 Creatinine 0.9 mg/dl (0.8-1.5) 10/07/17 06:30 Est GFR ( Amer) > 60 10/07/17 06:30 Est GFR (Non-Af Amer) > 60 10/07/17 06:30 Random Glucose 104 mg/dL (70-110) 10/07/17 06:30 Lactic Acid 1.9 mmol/L (0.7-2.1) 10/07/17 01:38 Calcium 8.1 mg/dL (8.4-10.5) L 10/07/17 06:30 Phosphorus 3.2 mg/dL (2.5-4.5) 10/06/17 20:25 Magnesium 1.8 mg/dL (1.7-2.2) 10/06/17 20:25 Total Bilirubin 0.4 mg/dL (0.2-1.3) 10/07/17 06:30 AST 22 U/L (17-59) 10/07/17 06:30 ALT 45 U/L (7-56) 10/07/17 06:30 Alkaline Phosphatase 59 U/L (38-126) 10/07/17 06:30 Total Protein 6.3 g/dL (5.8-8.3) 10/07/17 06:30 Albumin 3.3 g/dL (3.0-4.8) 10/07/17 06:30 Globulin 3.0 gm/dL 10/07/17 06:30 Albumin/Globulin Ratio 1.1 (1.1-1.8) 10/07/17 06:30 Urine Color Yellow (YELLOW) 10/06/17 21:40 Urine Appearance Clear (CLEAR) 10/06/17 21:40 Urine pH 6.0 (4.7-8.0) 10/06/17 21:40 Ur Specific [place] 1.025 (1.005-1.035) 10/06/17 21:40 Urine Protein 30 mg/dL (<30 mg/dL) H 10/06/17 21:40 Urine Glucose (UA) Negative mg/dL (NEGATIVE) 10/06/17 21:40 Urine Ketones Negative mg/dL (NEGATIVE) 10/06/17 21:40 Urine Blood Trace-intact (NEGATIVE) H 10/06/17 21:40 Urine Nitrate Negative (NEGATIVE) 10/06/17 21:40 Urine Bilirubin Negative (NEGATIVE) 10/06/17 21:40 Urine Urobilinogen 4.0 E.U./dL (<1 E.U./dL) H 10/06/17 21:40 Ur Leukocyte Esterase Negative Opal/uL (NEGATIVE) 10/06/17 21:40 Urine RBC 2 - 5 /hpf (0-2) 10/06/17 21:40 Urine WBC 0 - 2 /hpf (0-6) 10/06/17 21:40 Ur Epithelial Cells None /hpf (0-5) 10/06/17 21:40 Amorphous Sediment Few 10/06/17 21:40 Urine Bacteria Many (NEG) 10/06/17 21:40 Urine Other Uyeast 10/06/17 21:40 Influenza Typ A,B (EIA) Negative for flu a/b (NEGATIVE) 10/06/17 20:25 Attending/Attestation - Attestation I have personally seen and examined this patient.: Yes I have fully participated in the care of the patient.: Yes I have reviewed all pertinent clinical information, including history, physical exam and plan: Yes Notes (Text): 10/07/17 17:30 Medical record note made by the resident after discussion with my direction and input after the patient was personally seen and examined by me. I have reviewed the chart and agree that the record accurately reflects by personal performance of the history, physical exam, data review, and medical decision-making, in the course for the patient. I have also personally directed the plan of care.
== END 2017-10-07 15:15 | disposition home or self-care (01) ==
LOC: ED 19:43 → ERH 22:49 → 5RNO 10-07 00:18
PROVIDERS: ADMIT Internal Medicine; ATTEND Internal Medicine
DX: K52.9 Noninfective gastroenteritis and colitis, unspecified (principal); E87.6 Hypokalemia; Z83.3 Family history of diabetes mellitus
CPT/HCPCS: 36415; 70450; 71010; 74177; 80053; 81001; 83605; 83735; 84100; 85025; 87040; 87086; 87804; 96361; 96365; 96375; 96376; 99285; C9113; G0378; J0456; J1885; J2543; J3480; J7040; J7120; Q9967

== ENCOUNTER 2018-06-06 09:30 | Emergency (ER) | payer BC ==
[2018-06-06 10:05] VITALS: RESP 18; TEMP 98.8
[2018-06-06] MEDS ORDERED: TDAP Vaccine 0.5 mL Syr IM ONE (10:07)
--- NOTE | 2018-06-06 10:22 | ED PDOC ---
Arrival/HPI - General Chief Complaint: Abnormal Skin Integrity Time Seen by Provider: 06/06/18 10:03 Historian: Patient - History of Present Illness Narrative History of Present Illness (Text): 06/06/18 10:17 32-year-old male presents today with a laceration to the right second finger. Patient states he was trying to cut a block of cheese and sustained a laceration. He denies numbness weakness or tingling in the extremity. He is complaining of pain to the laceration site. He denies limited range of motion of the finger. Patient is unsure of his last tetanus shot. Incident occurred prior to arrival.no other complaints Past Medical History - Provider Review Nursing Documentation Reviewed: Yes - Travel History Have you recently traveled outside [place] w/in the past 3 mons?: No - Infectious Disease Hx of Infectious Diseases: None - Tetanus Immunization Tetanus Immunization: Unknown - Musculoskeletal/Rheumatological Hx Falls: No - Psychiatric Hx Substance Use: No - Anesthesia Hx Anesthesia: No Family/Social History - Physician Review Nursing Documentation Reviewed: Yes Family/Social History: Unknown Family HX Smoking Status: Never Smoked Hx Alcohol Use: No Hx Substance Use: No Allergies/Home Meds Allergies/Adverse Reactions: Allergies pistachio nut Allergy (Verified 10/07/17 03:07) VOMITING Review of Systems - Review of Systems Constitutional: absent: Fatigue, Fevers Respiratory: absent: SOB, Cough Cardiovascular: absent: Chest Pain, Palpitations Gastrointestinal: absent: Abdominal Pain, Vomiting Musculoskeletal: Arthralgias. absent: Back Pain, Neck Pain Skin: Laceration Neurological: absent: Headache, Dizziness Psychiatric: absent: Anxiety, Depression Physical Exam Vital Signs Reviewed: Yes Vital Signs Temp Pulse Resp BP Pulse Ox 06/06/18 09:54 98.8 F 82 18 124/89 99 Temperature: Afebrile Blood Pressure: Normal Pulse: Regular Respiratory Rate: Normal Appearance: Positive for: Well-Appearing, Non-Toxic, Comfortable Pain Distress: None Mental Status: Positive for: Alert and Oriented X 3 - Systems Exam Head: Present: Atraumatic Extroacular Muscles: Present: EOMI Mouth: Present: Moist Mucous Membranes Neck: Present: Normal Range of Motion Respiratory/Chest: Present: Clear to Auscultation Cardiovascular: Present: Regular Rate and Rhythm Upper Extremity: Present: Normal ROM, NORMAL PULSES, Tenderness (right 2nd finger; 1.5cm linear laceration to the volar aspect of the finger extending over the distal and middle phalanx. no active bleeding, no edema. full ROM of finger at DIP and PIP and MCP. sensation intact. cap refill <2. ), Neurovascularly Intact, Capillary Refill < 2s. No: Swelling, Erythema Neurological: Present: GCS=15, Speech Normal Skin: Present: Warm, Dry, Normal Color Psychiatric: Present: Alert, Oriented x 3 Medical Decision Making ED Course and Treatment: 06/06/18 10:22 Patient is nontoxic well appearing in no distress. Vital signs are stable. left hand dominant male with right 2nd finger laceration without signs of tendon or nerve injury. Wound irrigated well with high pressure irrigation Tetanus updated tylenol PO keflex po xray; right 2nd finger; no fracture, no fb Laceration repair: 5 sutures placed Bacitracin and dressing applied. finger splint applied. Patient was advised to keep the wound clean and dry, apply bacitracin twice daily. Advised taking antibiotics 4 times daily 7 days. Advised follow-up with the hand specialist within the next 2 days. Pt was advised of risk of possible tendon/nerve injury and need for f/u. Advised to return immediately if signs of infection develop or return if any other concerning symptoms develop. Patient verbalizes understanding of discharge instructions and need for immediate followup. all aspects of this case were discussed the attending of record. Impression: Laceration, finger Motrin every 6 hours as needed for pain Keflex; 1 capsule 4 times daily x 7 days Keep the wound clean and dry, apply bacitracin twice daily Return in 7-10 days for suture removal Return immediately if signs of infection develop: High fevers, increasing pain, redness, swelling, purulent discharge Follow up with the hand specialist within the next 2 days. Followup with primary care physician within the next 2 days Return if any other concerning symptoms develop - RAD Interpretation Radiology Orders: 06/06/18 10:07 HAND RIGHT 2ND DIGIT (FINGER) [RAD] Stat - Medication Orders Current Medication Orders: Discontinued Medications Acetaminophen (Tylenol 325mg Tab) 975 mg PO STAT STA Stop: 06/06/18 10:09 Last Admin: 06/06/18 10:27 Dose: 975 mg Cephalexin Monohydrate (Keflex) 500 mg PO STAT STA PRN Reason: Protocol Stop: 06/06/18 10:08 Last Admin: 06/06/18 10:27 Dose: 500 mg Lidocaine HCl (Lidocaine 2% 20ml Vial) 3 ml IJ ONCE STA Stop: 06/06/18 11:45 Last Admin: 06/06/18 12:12 Dose: Not Given Non-Admin Reason: Agitation Tetanus/Reduced Diphtheria/Acell Pertussis (Boostrix Vaccine Inj) 0.5 ml IM .ONCE ONE Stop: 06/06/18 10:08 Last Admin: 06/06/18 10:27 Dose: 0.5 ml Immunization Registry Document 06/06/18 10:27 GMD (Rec: 06/06/18 10:27 GMD [id number]) Immunization Registry Consent Date 10/06/17 Procedure: Wound Repair - Procedure Procedure: Wound Repair: right 2nd finger laceration - Consent Obtained Consent obtained: Verbal - Performed by Performed by: Mid-level Provider - Indications Indication(s):: Laceration - Location Finger:: Right, Index Shape:: Linear Dimensions Length cm: 1.5cm Depth:: Epidermis - Anesthetic Technique Local/Regional Anesthetic:: Lidocaine 2% (2.5cc) - Wound Examination Wound Examination:: Other (no tendon, vascular or nerve injury) - Debris Debris:: None - Irrigated Irrigated with ml of normal saline: copious amounts of NS using high pressure irrigation - Complexity Complexity:: Simple (one layer) - Wound repair method Sutures:: # (5), Size (4.0), Type (nylon), Technique (interrupted) - Complications Complications: none - Patient tolerated procedure Patient Tolerated Procedure:: Well Disposition/Present on Arrival - Present on Arrival Any Indicators Present on Arrival: No History of DVT/PE: No History of Uncontrolled Diabetes: No Urinary Catheter: No History of Decub. Ulcer: No History Surgical Site Infection Following: None - Disposition Have Diagnosis and Disposition been Completed?: Yes Diagnosis: Laceration of finger Disposition: HOME/ ROUTINE Disposition Time: 12:18 Patient Plan: Discharge Condition: GOOD Discharge Instructions (ExitCare): Laceration Repair With Stitches (DC) Additional Instructions: Motrin every 6 hours as needed for pain Keflex; 1 capsule 4 times daily x 7 days Keep the wound clean and dry, apply bacitracin twice daily Return in 7-10 days for suture removal Return immediately if signs of infection develop: High fevers, increasing pain, redness, swelling, purulent discharge Follow up with the hand specialist within the next 2 days. Followup with primary care physician within the next 2 days Return if any other concerning symptoms develop Prescriptions: Cephalexin [Keflex] 500 mg PO QID #28 capsule Referrals: Ariadna Moreno MD [Staff Provider] - Follow up with primary Dilan Sherman MD [Staff Provider] - Follow up with primary Mariah Rapp MD [Medical Doctor] - Follow up with primary [facility] [Outside] - Follow up with primary Forms: [employer] ([place]), WORK NOTE
[2018-06-06] MEDS ORDERED: Lidocaine 2% Inj (20ml) IJ STA (11:44)
[2018-06-06] MEDS ORDERED: Lidocaine PF 2% (5 ml) Inj (For Cardiac Arrhy) ONE (11:46)
--- NOTE | 2018-06-06 12:11 | RAD ---
PROCEDURE: Right Hand and 2nd digit Radiographs. HISTORY: right 2nd finger pain COMPARISON: None. FINDINGS: BONES: Normal. No fracture. JOINTS: Normal. No osteoarthritic changes. SOFT TISSUES: Normal. OTHER FINDINGS: None. IMPRESSION: Negative study
[2018-06-06 12:23] VITALS: BP 122/81; PULSE 67; O2SAT 98
== END 2018-06-06 12:44 | disposition home or self-care (01) ==
LOC: ED 09:30
DX: S61.210A Laceration without foreign body of right index finger without damage to nail, initial encounter (principal); W45.8XXA Other foreign body or object entering through skin, initial encounter; Z23 Encounter for immunization